=== PATIENT | male | born 2000 | race Caucasian/White ===

== ENCOUNTER 2019-10-23 21:17 | Emergency (ER) | payer MEDICAID ==
[~2019-10-23] VITALS: Ht 182.9 cm; Wt 81.0 kg
[2019-10-23 23:39] VITALS: BP 145/90
== END 2019-10-24 00:56 | disposition home or self-care (01) ==
LOC: ER 21:17
DX: R00.2 Palpitations (principal)
CPT/HCPCS: 99281